=== PATIENT | female | born 1995 | race Two or more races ===

== ENCOUNTER → 2017-09-26 | Outpatient (CLI) | payer OTHER | END | disposition home or self-care (01) | LOC: LAB 09:28 | PROVIDERS: ATTEND Specialist | DX: Z20.2 Contact with and (suspected) exposure to infections with a predominantly sexual mode of transmission (principal) | CPT/HCPCS: 87591 ==

== ENCOUNTER 2018-02-02 17:59 | Emergency (ER) | payer OTHER ==
[~2018-02-02] VITALS: Ht 160 cm; Wt 43.5 kg
[2018-02-02 18:10] VITALS: BP 103/60
[2018-02-02] MEDS ORDERED: DEXAMETHASONE SOD PHOS 10MG/1ML VIAL INJ IM ONE (20:45)
== END 2018-02-02 21:25 | disposition home or self-care (01) ==
LOC: ER 18:04
DX: J32.9 Chronic sinusitis, unspecified (principal); M79.1 Myalgia
CPT/HCPCS: 96372; 99283; J1100

== ENCOUNTER 2018-12-31 04:34 | Emergency (ER) | payer OTHER ==
[~2018-12-31] VITALS: Ht 160 cm; Wt 44.5 kg
[2018-12-31 05:05] VITALS: BP 145/93
[2018-12-31] MEDS ORDERED: LORATADINE 10 MG TAB PO ONE (06:45)
[2018-12-31] MEDS ORDERED: methylPREDNISolone SOD SUCC 125 MG/2 ML VL IM ONE (06:45)
== END 2018-12-31 07:19 | disposition home or self-care (01) ==
LOC: ER 04:37
DX: J30.2 Other seasonal allergic rhinitis (principal); J02.9 Acute pharyngitis, unspecified
CPT/HCPCS: 96372; 99283; J2930

== ENCOUNTER 2020-07-13 20:56 | Emergency (ER) | payer MEDICAID, OTHER ==
[2020-07-13] MEDS ORDERED: ALBUTEROL SULF 2.5 MG/0.5ML(0.5%) NEB SOLN NEB ONE ×2 (21:15→23:30)
[2020-07-13] MEDS ORDERED: DexAMETHasone INJECTION 10 MG in D5W 5% 50 ML IV ONE (21:15)
[2020-07-13] MEDS ORDERED: IPRATROPIUM BROM 0.5 MG/2.5ML INH SOL NEB ONE ×2 (21:15→23:30)
[2020-07-13] MEDS ORDERED: DexAMETHasone 4 MG TAB PO ONE (21:45)
[2020-07-13] MEDS: DexAMETHasone SOD PHOS 10MG/1ML VIAL INJ IV ONE ×2 (23:21→23:37)
[2020-07-13] MEDS ORDERED: ONDANSETRON HCL 4 MG/2 ML VIAL IM ONE (23:30)
[2020-07-13] MEDS ORDERED: SODIUM CHLORIDE 0.9% 1,000 ML IV ONE (23:30)
[2020-07-14 00:40] VITALS: BP 107/57
[2020-07-14] MEDS ORDERED: DexAMETHasone INJECTION 10 MG in D5W 5% 50 ML IV SCH (10:00)
== END 2020-07-14 01:00 | disposition home or self-care (01) ==
LOC: ER 20:58
DX: J45.51 Severe persistent asthma with (acute) exacerbation (principal)
CPT/HCPCS: 71046; 93005; 94640; 96372; 96374; 99285; J1100; J2405; J7060; J7644; J8540

== ENCOUNTER 2022-08-07 15:57 | Emergency (ER) | payer MEDICAID ==
[~2022-08-07] VITALS: Ht 160 cm; Wt 52.2 kg
[2022-08-07 17:13] VITALS: BP 115/66
[2022-08-07] MEDS ORDERED: ALBUTEROL SULF 2.5 MG/0.5ML(0.5%) NEB SOLN NEB ONE (17:15)
[2022-08-07] MEDS ORDERED: IPRATROPIUM BROM 0.5 MG/2.5ML INH SOL NEB ONE (17:15)
[2022-08-07] MEDS ORDERED: ALBU108A5 IN ×3 (17:25→17:27)
[2022-08-07] MEDS ORDERED: AZIT250T8 PO (17:25)
[2022-08-07] MEDS ORDERED: CIPRSUS OT (17:25)
== END 2022-08-07 17:56 | disposition home or self-care (01) ==
LOC: ER 15:57
DX: J45.909 Unspecified asthma, uncomplicated (principal); J20.9 Acute bronchitis, unspecified; J03.90 Acute tonsillitis, unspecified; H60.92 Unspecified otitis externa, left ear; Z79.2 Long term (current) use of antibiotics; Z79.899 Other long term (current) drug therapy
CPT/HCPCS: 94640; 99283; J7644